=== PATIENT | male | born 1990 ===

== ENCOUNTER 2016-12-15 15:58 | Emergency (ER) | payer SELFPAY ==
[2016-12-15 16:08] VITALS: RESP 18
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
[2016-12-15] MEDS ORDERED: TDAP Vaccine 0.5 mL Syr IM ONE (16:13)
[2016-12-15 18:00] VITALS: O2SAT 98
[2016-12-15 18:07] VITALS: TEMP 98.3
[2016-12-15 18:09] VITALS: BP 113/68; PULSE 70
== END 2016-12-15 18:00 | disposition home or self-care (01) ==
LOC: ED 15:58
DX: S01.511A Laceration without foreign body of lip, initial encounter (principal); Y04.0XXA Assault by unarmed brawl or fight, initial encounter; Z23 Encounter for immunization

== ENCOUNTER 2016-12-17 10:59 | Emergency (ER) | payer SELFPAY ==
[2016-12-17 11:22] VITALS: TEMP 98.1
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
[2016-12-17 12:21] VITALS: BP 119/65; PULSE 62; RESP 17; O2SAT 99
== END 2016-12-17 12:23 | disposition home or self-care (01) ==
LOC: ED 10:59
DX: Z48.817 Encounter for surgical aftercare following surgery on the skin and subcutaneous tissue (principal); G89.18 Other acute postprocedural pain

== ENCOUNTER 2017-03-09 19:43 | Emergency (ER) | payer SELFPAY | END 2017-03-09 22:22 | disposition left against medical advice (07) | LOC: ED 19:43 | DX: Z02.89 Encounter for other administrative examinations (principal); R51 Headache ==

== ENCOUNTER 2017-03-16 12:50 | Emergency (ER) | payer SELFPAY ==
[2017-03-16 13:47] VITALS: BP 108/69
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
[2017-03-16 15:56] VITALS: PULSE 78; TEMP 98; O2SAT 99
[2017-03-16 15:57] VITALS: RESP 19
== END 2017-03-16 15:57 | disposition home or self-care (01) ==
LOC: ED 12:50
DX: R51 Headache (principal)

== ENCOUNTER 2017-04-06 22:08 | Emergency (ER) | payer MEDICAID ==
[2017-04-06 22:37] VITALS: O2SAT 100
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
[2017-04-07 01:21] VITALS: BP 127/93; PULSE 89; RESP 19; TEMP 98.2
== END 2017-04-06 23:00 | disposition home or self-care (01) ==
LOC: ED 22:08
DX: R51 Headache (principal)

== ENCOUNTER 2017-06-08 09:47 | Emergency (ER) | payer OTHER ==
[2017-06-08 10:02] VITALS: BP 111/63; PULSE 68; RESP 16; TEMP 98.3; O2SAT 97
[2017-06-08] MEDS ORDERED: DiphenhydrAMINE 50 mg/ml Inj IVP STA (10:22)
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
== END 2017-06-08 10:50 | disposition home or self-care (01) ==
LOC: ED 09:47
DX: R51 Headache (principal)

== ENCOUNTER 2018-05-09 17:50 | Emergency (ER) | payer SELFPAY ==
[2018-05-09 18:59] VITALS: TEMP 98.1; O2SAT 100
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
[2018-05-09 20:01] VITALS: BP 115/72; PULSE 61; RESP 16
== END 2018-05-09 19:30 | disposition home or self-care (01) ==
LOC: ED 17:50
DX: R51 Headache (principal)

== ENCOUNTER 2018-07-20 18:01 | Emergency (ER) | payer SELFPAY ==
[2018-07-20 18:16] VITALS: BP 98/59; PULSE 73; RESP 18; TEMP 98.6; O2SAT 98
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
== END 2018-07-20 19:11 | disposition home or self-care (01) ==
LOC: ED 18:01
DX: R10.13 Epigastric pain (principal)